=== PATIENT | female | born 1995 | race Caucasian/White ===

== ENCOUNTER 2019-04-21 14:52 | Inpatient (IN) | payer BC, MEDICAID ==
[~2019-04-21] VITALS: Ht 157.5 cm; Wt 101.1 kg
[2019-04-21 15:10] VITALS: Ht 157.5 cm; Wt 101.1 kg
[2019-04-21 16:21] VITALS: BP 120/73; PULSE 77; RESP 20
--- NOTE | 2019-04-21 18:57 | HP ---
Date/Time of Note Date/Time of Note DATE: 04/21/19 TIME: 18:56 OB - History Hx of Present Free Text/Dictation @40+wks GA in labor : 2 Para: 0 Care: Good Care Ultrasounds: Normal mid trimester US Obstetrical Complications: None Medical Complications: None Past Family/Social History * Past Medical, Surgical, Family and Obstetric Histories reviewed from c nguyen. OB Admission Exam Vital Signs Vital Signs Vital Signs Date Temp Pulse Resp B/P (MAP) Pulse Ox O2 O2 Flow FiO2 Time Delivery Rate 04/21/19 97.0 77 20 120/73 Room Air 16:21 (89) Physical Exam Abdomen: WNL Cervical Dilatation: 1cm Effacement: 75% Station: -1 Membranes: Intact Heart Rate: 140's Accelerations: Accelerations Present Decelerations: No Decelerations Varibility: Moderate Contractions on Admission: 6-10 Minutes Apart OB Assessment/Plan Reason for admission: observation Other Assessment: PMH Denies PSH Denies Plan: Expectant Management ARMANDO GARCÍA M.D. Apr 21, 2019 18:57
[2019-04-21] MEDS ORDERED: IBUPROFEN 600 MG TAB PO PRN (19:00)
[2019-04-21] MEDS ORDERED: LIDOCAINE 1% (MPF) 30 ML INJ INJ PRN (19:00)
[2019-04-21] MEDS ORDERED: OXYTOCIN 30 UNITS/LR 500 ML IV PRN (19:00)
[2019-04-21] MEDS ORDERED: OXYCODONE/ASPIRIN (4.88/325) TAB PO PRN (19:00)
[2019-04-21] MEDS ORDERED: METHYLERGONOVINE 0.2 MG INJ IM PRN (19:00)
[2019-04-21] MEDS ORDERED: MISOPROSTOL 200 MCG TAB PR PRN (19:00)
[2019-04-21] MEDS ORDERED: BUTORPHANOL 2 MG INJ IV PRN (19:00)
[2019-04-21] MEDS ORDERED: OXYTOCIN 30 UNITS/LR 500 ML IV SCH ×2 (19:00)
[2019-04-21] MEDS ORDERED: CARBOPROST 250 MCG INJ IM PRN (19:00)
--- NOTE | 2019-04-21 19:07 | TRIAGE ---
OB Triage Datetime Report Generated by CPN: 04/21/2019 19:07 Datetime: 04/21/2019 19:00 Labor Evaluation Frequency: 3-9 Monitor Mode: External Duration (sec)2399: 40-80 Quality: Mild Pattern: Normal: <= 5 Contractions in 10 Minutes Resting Tone Kelford: Relaxed Heart Rate FHR Baseline Rate: 115 Monitor Mode: External US FHR Baseline Changes: Bradycardia Variability: Moderate 6-25 bpm Accelerations: 15X15 Decelerations: None Category: Category I Pain Assessment Pain Scale: 0 Pain Presence: None/Denies Pain Type: N/A Pain Goal: 0 Datetime: 04/21/2019 17:59 Labor Evaluation Frequency: 3-11 Monitor Mode: External Duration (sec)2399: 40-60 Quality: Mild Pattern: Normal: <= 5 Contractions in 10 Minutes Resting Tone Kelford: Relaxed Heart Rate FHR Baseline Rate: 115 Monitor Mode: External US FHR Baseline Changes: Bradycardia Variability: Moderate 6-25 bpm Accelerations: 15X15 Decelerations: None Category: Category I Pain Assessment Pain Scale: 0 Pain Presence: None/Denies Pain Type: N/A Pain Goal: 2 Datetime: 04/21/2019 17:27 Vaginal Exam Dilatation (cms): 1.0 Effacement (%): 60 Station: -2 Exam By: MAY Vaginal Bleeding: None Cervix, Consistency: Soft Cervix, Position: Posterior Presentation 'A': Cephalic Datetime: 04/21/2019 17:03 Labor Evaluation Frequency: X5 Monitor Mode: External Duration (sec)2399: 40-60 Quality: Mild Pattern: Normal: <= 5 Contractions in 10 Minutes Resting Tone Kelford: Relaxed Heart Rate FHR Baseline Rate: 115 Monitor Mode: External US FHR Baseline Changes: No Baseline Change Variability: Moderate 6-25 bpm Accelerations: 15X15 Decelerations: None Category: Category I Pain Assessment Pain Scale: 0 Pain Presence: Intermittent Pain Type: Cramping Pain Location: Abdomen Pain Goal: 2 Membrane Status: Intact Datetime: 04/21/2019 16:15 Labor Evaluation Frequency: X2 Monitor Mode: External Duration (sec)2399: 40 Quality: Mild Pattern: Normal: <= 5 Contractions in 10 Minutes Resting Tone Kelford: Relaxed Heart Rate FHR Baseline Rate: 115 Monitor Mode: External US FHR Baseline Changes: Bradycardia Accelerations: 15X15 Decelerations: None Category: Category I Pain Assessment Pain Scale: 0 Pain Presence: None/Denies Pain Type: N/A Pain Goal: 0 Datetime: 04/21/2019 15:52 Time of Arrival: 04/21/2019 14:40 EGA: 40.2 Arrived By: Ambulatory Arrived From: Office Chief Complaint: LEAKING NOTED 1930 LAST NIGHT, POST DATES Movement: Present Contractions: Irregular Rupture of Membranes: Unsure Vaginal Bleeding: None Vaginal Discharge: Present Recent Sexual Intercouse: Denies Abdominal Trauma: Not Applicable Patient Complaints: Other Time Provider Notified: 04/21/2019 17:31 Provider Notified: DR. HOPKINS Initial Plan: EFM, BPP, EFW Datetime: 04/21/2019 15:50 Assessment Type: Triage Maternal Assessment Level of Consciousness: Keenly Alert, Responsive DTR's/Clonus: DTRs 2+; No Clonus Headache: Denies Blurred Vision: No Respiratory Effort: Unlabored; Regular Rhythm; Equal Expansion Breath Sounds, Left: Clear and Equal Breath Sounds, Right: Clear and Equal Nausea/Vomiting: Denies RUQ Epigastric Pain: Denies Lower Extremities Edema: None Degree: None Upper Extremities Edema: None Degree: None Facial Edema: None Fall Risk Assessment History of Falling: (0) No Secondary Diagnosis: (0) No Ambulatory Aid: (0) Bedrest/Nurse Assist IV Therapy: (0) No Gait: (0) Normal/Bedrest/Immobile Mental Status: (0) Oriented to Own Ability Fall Score: 0 Fall Risk Score Definition: No Risk: No action required Datetime: 04/21/2019 15:31 Monitor Mode: External Monitor Mode: External US Pain Assessment Pain Scale: 0 Pain Presence: Intermittent Pain Type: Cramping Pain Location: Abdomen Pain Goal: 2
--- NOTE | 2019-04-21 19:56 | HP ---
Date/Time of Note Date/Time of Note DATE: 04/21/19 TIME: 19:55 OB - History Hx of Present Chief Complaint: post date Estimated Due Date: Apr 19, 2019 : 2 Para: 0 Spontaneous : 0 Therapeutic : 1 Care: Good Care Ultrasounds: Normal mid trimester US Obstetrical Complications: None Medical Complications: None Past Family/Social History * Past Medical, Surgical, Family and Obstetric Histories reviewed from chart. GBS Status: Negative OB Admission Exam Vital Signs Vital Signs Vital Signs Date Temp Pulse Resp B/P (MAP) Pulse Ox O2 O2 Flow FiO2 Time Delivery Rate 04/21/19 97.0 77 20 120/73 Room Air 16:21 (89) Physical Exam HEENT: WNL Heart: Rhythm Normal Lungs: Clear, Equal Abdomen: WNL Extremities: Normal Reflexes: Normal Cervical Dilatation: Fingertip Effacement: 50% Station: -1 Membranes: Intact Heart Rate: 120's Accelerations: Accelerations Present Decelerations: No Decelerations Varibility: Moderate OB Assessment/Plan Reason for admission: induction of labor Plan: Induction Induction Method: per Misoprostol Protocol MIGUEL BRUCE MD Apr 21, 2019 19:56
[2019-04-21] MEDS: LACTATED RINGER'S 1,000 ML IV SCH (20:01)
[2019-04-21] MEDS: MISOPROSTOL 50 MCG CAPSULE PO SCH (21:44)
[2019-04-22] MEDS: LACTATED RINGER'S 1,000 ML IV SCH ×5 (00:16→18:16)
[2019-04-22] MEDS: MISOPROSTOL 50 MCG CAPSULE PO SCH (02:41)
--- NOTE | 2019-04-22 09:53 | PREAC ---
Date/Time of Note Date/Time of Note DATE: 04/22/19 TIME: 09:52 Anesthesia Eval and Record Evaluation Time Pre-Procedure Interview DATE: 04/22/19 TIME: 09:52 Age 24 Sex female NPO: 8 hrs Preoperative diagnosis IUP Planned procedure L&D Epidural Past Medical History Past Medical History: Includes GI: Obesity : : Surgery & Anesthesia Issues No known issue Meds Anticoagulation: No Beta Carmen within 24 hr: No Reason Beta Carmen not given: Pt. not on B-Carmen Current Medications Lactated Ringer's 1,000 ml @ 125 mls/hr Q8H IV Last administered on 04/22/19at 09:20; Admin Dose 125 MLS/HR; Start 04/21/19 at 18:54 Butorphanol Tartrate (Stadol) 2 mg Q2H PRN IV .PAIN SCALE 6-10; Start 04/21/19 at 19:00 Lidocaine (Xylocaine 1% (Mpf)) 30 ml ONCE PRN INJ .EPISIOTOMY; Start 04/21/19 at 19:00 Oxytocin/Lactated Ringer's 500 ml @ 500 mls/hr ONCE POST IV ; Start 04/21/19 at 19:00 Oxytocin/Lactated Ringer's 500 ml @ 125 mls/hr POST IV ; Start 04/21/19 at 19:00 Ibuprofen (Motrin) 600 mg ONCE PRN PO .PAIN 1-5; Start 04/21/19 at 19:00 Oxycodone/Aspirin (Percodan) 2 tab ONCE PRN PO .PAIN 6-10; Start 04/21/19 at 19:00 Oxytocin/Lactated Ringer's 500 ml @ 0 mls/hr ONCE PRN IV .VAGINAL BLEEDING; Start 04/21/19 at 19:00 Methylergonovine Maleate (Methergine) 0.2 mg ONCE PRN IM .VAGINAL BLEEDING; Start 04/21/19 at 19:00 Carboprost Tromethamine (Hemabate) 250 mcg ONCE PRN IM .VAGINAL BLEEDING; Start 04/21/19 at 19:00 Misoprostol (Cytotec) 1,000 mcg ONCE PRN NM .VAGINAL BLEEDING; Start 04/21/19 at 19:00 Misoprostol (Cytotec 50 Mcg Capsule) 50 mcg Q4 PO Last administered on 04/22/19a t 02:41; Admin Dose 50 MCG; Start 04/21/19 at 21:00; Stop 04/22/19 at 17:01 Lactated Ringer's 500 ml @ 500 mls/hr Q1H ONCE IV ; Start 04/22/19 at 10:00; Stop 04/22/19 at 10:59; Status UNV Meds reviewed: Yes Allergies Coded Allergies: No Known Allergy (Unverified , 04/21/19) Allergies Reviewed: Yes Labs/Studies Labs Reviewed: Reviewed by anesthesiologist Result Diagram: 04/21/191952 Laboratory Tests 04/21/19 19:53 Blood Bank Test 04/21/19 19:53 Antibody Screen NEGATIVE Blood Type O POSITIVE Rh Immune Globulin Candidate NO test: Positive Studies: ECG Pre-procedure Exam Last vitals Vital Signs Date Temp Pulse Resp B/P (MAP) Pulse Ox O2 O2 Flow FiO2 Time Delivery Rate 04/21/19 97.0 77 20 120/73 Room Air 16:21 (89) Airway: Adequate mouth opening, Adequate thyromental dist Mallampati: Mallampati II Teeth: Normal Lung: Normal Heart: Normal ASA Physical Status ASA physical status: 2 Emergency: None Planned Anesthetic Neuraxial: Epidural Planned Pain Management Parenteral pain med Pre-operative Attestations Prior to commencing anesthesia and surgery, the patient was re-evaluated, there was verification of: *The patient's identity *The results of appropriate recent lab work and preoperative vital signs *The above evaluation not changing prior to induction *Anesthetic plan, risk benefits, alternative and complications discussed with patient/family; questions answered; patient/family understands, accepts and wishes to proceed. ALEJANDRO CUNHA MD Apr 22, 2019 09:53
[2019-04-22] MEDS ORDERED: FENTAnyl 2MCG/ML-ROPIV 0.2% 100 ML ONE (09:54)
[2019-04-22] MEDS ORDERED: DIPHENHYDRAMINE 50 MG INJ IV PRN (10:00)
[2019-04-22] MEDS ORDERED: NALOXONE (0.4 MG/ML) INJ IV PRN (10:00)
[2019-04-22] MEDS ORDERED: LACTATED RINGER'S 500 ML IV ONE (10:00)
[2019-04-22] MEDS ORDERED: ONDANSETRON 4 MG INJ IV PRN ×2 (10:00→22:30)
[2019-04-22] MEDS ORDERED: FENTAnyl 2MCG/ML-ROPIV 0.2% 100 ML BAG EPI SCH (10:00)
[2019-04-22] MEDS: OXYTOCIN 30 UNITS/LR 500 ML IV SCH ×2 (11:20→11:22)
--- NOTE | 2019-04-22 20:23 | LDN ---
Date/Time of Note Date/Time of Note DATE: 04/22/19 TIME: 20:21 Delivery Summary Weeks of Gestation 40 Placenta Delivered: Spontaneously Meconium: none Perineal laceration: 1 Laceration repair: 1st degree perineal laceration repair with 2-0 and 3-0 chromic Anesthesia type: Epidural Estimated blood loss: 200 Sponge & Needle done & correct: Yes All needle counts correct: Yes Any foreign bodies felt in the: No Delivery Information Sex Sex: male Apgars 1 Minute: 8 5 Minute: 9 Suctioning Nose & mouth suctioned at eron: No Delee suction performed: No Umbilical Cord Umbilical cord with: 3 Vessels Cord presentations: no nuchal cord Cord Blood was obtained: Yes MAG HOPKINS MD Apr 22, 2019 20:22
[2019-04-22 21:30] VITALS: BP 116/60; PULSE 63; RESP 19
[2019-04-22] MEDS ORDERED: OXYTOCIN 30 UNITS/LR 500 ML IV SCH (22:21)
[2019-04-22] MEDS ORDERED: LANOLIN HPA 1 PKT TOP PRN (22:30)
[2019-04-22] MEDS ORDERED: WITCH HAZEL/GLYCERIN PAD PR PRN (22:30)
[2019-04-22] MEDS ORDERED: CARBOPROST 250 MCG INJ IM PRN (22:30)
[2019-04-22] MEDS ORDERED: ZOLPIDEM 5 MG TAB PO PRN (22:30)
[2019-04-22] MEDS ORDERED: HYDROCODONE/APAP (5/325) TAB PO PRN (22:30)
[2019-04-22] MEDS ORDERED: MISOPROSTOL 200 MCG TAB PR PRN (22:30)
[2019-04-22] MEDS ORDERED: NACL 0.9% 3 ML SYG IV SCH (22:30)
[2019-04-22] MEDS ORDERED: ACETAMINOPHEN 325 MG TAB PO PRN (22:30)
[2019-04-22] MEDS ORDERED: BENZOCAINE 20% 56 ML SPRAY TOP PRN (22:30)
[2019-04-22] MEDS ORDERED: METHYLERGONOVINE 0.2 MG INJ IM PRN (22:30)
[2019-04-22] MEDS ORDERED: OXYTOCIN 30 UNITS/LR 500 ML IV PRN (22:30)
[2019-04-22] MEDS ORDERED: DIPHENHYDRAMINE 25 MG CAP PO PRN (22:30)
[2019-04-22] MEDS: IBUPROFEN 800 MG TAB PO SCH (23:20)
[2019-04-23 03:15] VITALS: BP 109/63; PULSE 58; RESP 20
[2019-04-23] MEDS: IBUPROFEN 800 MG TAB PO SCH ×4 (05:26→23:52)
--- NOTE | 2019-04-23 07:27 | PD.PPDC ---
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 Discharge Instruction Condition [id number] Patient Condition: Ejoin1a Fair Diet Feeks4Tl Diet: Doomp1o Resume Regular Diet Activity/Restrictions [id number] Activity: Afoch5f Normal Activity May Shower [id number] Restrictions: Ohzyq1h No Exercising No Lifting No Driving No Sexual Activity Nothing in the Vagina No [employer] No Tampons, douche Follow-up Follow-up with Physician: 3, Week/Weeks Return to clinic for Napzy6Dz EVS ATTENDANT Instructions: Ctoig5x Fever greater than 101 Chills Worsening abdominal pain Excessive Vaginal Bleeding More than 2 pads per hour Unable to tolerate diet [id number] OB Instructions: Efbgy7f Breast Tenderness Depression Blurried Vision Headache [id number] Surgical Instructions: Kcovn3v Incisional Drainage Incisional Redness MAG HOPKINS MD Apr 23, 2019 07:27
--- NOTE | 2019-04-23 07:29 | DS ---
Date/Time of Note Date/Time of Note DATE: 04/23/19 TIME: 07:28 Obstetrical Discharge Record Final Diagnosis Final Diagnosis: Term delivered Vaginal Delivery Obstetrical Delivery: Spontaneous, Laceration, Repaired Condition on Discharge Physical Assessment Last Vitals: stable afebrile Voiding: Yes Bowel Movement: Yes Breast: Soft, non-tender, Filling Fundus: Firm Abdomen and Incision: soft nt Calf Tenderness: No Patient Condition: Fair MAG HOPKINS MD Apr 23, 2019 07:29
[2019-04-23 08:00] VITALS: BP 119/65; PULSE 73; RESP 20
[2019-04-23] MEDS: SENNA/DOCUSATE NA (8.6MG/50MG) TAB PO SCH ×2 (09:48→21:55)
[2019-04-23] MEDS: MISOPROSTOL 50 MCG CAPSULE PO SCH (09:56)
[2019-04-23 11:55] VITALS: BP 131/73; PULSE 72; RESP 20
[2019-04-23 15:50] VITALS: BP 120/74; PULSE 82; PULSE 91; RESP 16; RESP 20
[2019-04-23 19:35] VITALS: BP 113/68; PULSE 71; RESP 18
--- NOTE | 2019-04-23 21:48 | DELSUM ---
Delivery Summary A-C Datetime Report Generated by CPN: 04/23/2019 21:48 DELIVERY PERSONNEL Crystallography Teacher: Jain, Henrietta MATERNAL INFORMATION Delivery Anesthesia: Epidural Medications in Delivery: 30 UNITS PITOCIN Delivery QBL (ml): 200 Placenta Cultured: No Maternal Complications: None LABOR SUMMARY EDC: 04/19/2019 00:00 No. Babies in Womb: 1 Attempted: No Labor Anesthesia: Epidural LABOR INFORMATION Reason for Induction: Postterm Onset of Labor: 04/21/2019 20:00 Complete Dilatation: 04/22/2019 19:09 Cervical Ripening Agents: Cytotec @ 50 MCG PO GIVEN Other Ripening Agents: 2 Group B Beta Strep: Negative Antibiotics # of Doses: 0 Steroids Given: None Reason Steroids Not Administered: Not Applicable MEMBRANES Membranes Rupture Method: Spontaneous Rupture of Membranes: 04/22/2019 15:56 Length of Rupture (hr): 3.70 Amniotic Fluid Color: Clear Amniotic Fluid Amount: Moderate Amniotic Fluid Odor: None STAGES OF LABOR Stage 1 hr: 23 Stage 1 min: 9 Stage 2 hr: 0 Stage 2 min: 29 Stage 3 hr: 0 Stage 3 min: 2 Total Time in Labor hr: 23 Total Time in Labor min: 40 VAGINAL DELIVERY Laceration Extension: First Degree Laceration Type: Perineal Laceration Repair: Yes Initial Vag Sponge Count: 10 Final Vag Sponge Count: 10 Initial Vag Sharps Count: 2 Final Vag Sharps Count: 2 Sponge Count Correct: Yes; Vaginal Sweep Performed Sharps Count Correct: Yes BABY A INFORMATION Delivery Date/Time: 04/22/2019 19:38 Method of Delivery: Vaginal Born in Route : No : N/A Forceps: N/A Vacuum Extraction: N/A Shoulder Dystocia : N/A SHOULDER DYSTOCIA BABY A Infant Delivery Date/Time: 04/22/2019 19:38 PRESENTATION/POSITION BABY A Presentation: Cephalic Cephalic Presentation: Vertex Breech Presentation: N/A PLACENTA INFORMATION BABY A Placenta Delivery Time : 04/22/2019 19:40 Placenta Method of Delivery: Expressed Placenta Status: Delivered SCORES BABY A Heart Rate 1 min: >100 bpm Resp Effort 1 min: Good Cry Reflex Irritability 1 min: Cough/Sneeze/Pulls Away Muscle Tone 1 min: Active Motion Color 1 min: Blue/Pale Resuscitation Effort 1 min: Tactile Stimulation SCORE 1 MIN: 8 Heart Rate 5 min: >100 bpm Resp Effort 5 min: Good Cry Reflex Irritability 5 min: Cough/Sneeze/Pulls Away Muscle Tone 5 min: Active Motion Color 5 min: Body Warren, Extremit Blue Resuscitation Effort 5 min: Tactile Stimulation SCORE 5 MIN: 9 INFANT INFORMATION BABY A Gestational Age at Delivery: 40.3 Gestational Status: Full Term- 39- 40.6 Weeks Condition : Stable Sex: Male IDENTIFICATION/MEDS BABY A ID Band Number: [id number] ID Band Location: Right Leg; Left Arm Sensor Applied: Yes Sensor Number: [id number] Sensor Location : Cord Clamp Vitamin K Given : Not Given Erythromycin Given: Not Given WEIGHT/LENGTH BABY A Infant Birthweight (gm): 3800 Weight (lb): 8 Weight (oz): 6 Length (in): 20.00 Length (cm): 50.80 CORD INFORMATION BABY A No. Cord Vessels: 3 Nuchal Cord : N/A Cord Blood Taken: Yes Suction: Mouth; Nose ASSESSMENT BABY A Infant Complications: Multiple Variable Decels Physical Findings at Delivery: Within Normal Limits Respirations: Appears Normal Trimming Cutter Machine/ALS Called : No Infant Care By: PRIYA Transferred To: Remains with Mother
[2019-04-24 03:52] VITALS: BP 98/57; PULSE 78; RESP 20
[2019-04-24] MEDS: IBUPROFEN 800 MG TAB PO SCH ×2 (05:30→11:54)
[2019-04-24 08:30] VITALS: BP 114/70; PULSE 71; RESP 18
[2019-04-24] MEDS ORDERED: MEASLES,MUMPS,RUBELLA VACCINE INJ SC* ONE (09:00)
[2019-04-24] MEDS ORDERED: VARICELLA VACCINE LIVE/PF 1,350 UNIT/0.5 ML ML SC* ONE (09:00)
[2019-04-24] MEDS ORDERED: DIPHTH/TET/ACEL PERTUSS (ADULT) 0.5 ML VIAL IM* ONE (09:00)
[2019-04-24] MEDS: SENNA/DOCUSATE NA (8.6MG/50MG) TAB PO SCH (09:45)
--- NOTE | 2019-04-24 16:42 | PAC ---
Date/Time of Note Date/Time of Note DATE: 04/24/19 TIME: 16:41 Post-Anesthesia Notes Post-Anesthesia Note Last documented vital signs Vital Signs Date Temp Pulse Resp B/P (MAP) Pulse Ox O2 O2 Flow FiO2 Time Delivery Rate 04/24/19 98.2 71 18 114/70 Room Air 08:30 (85) Activity: WNL Respiratory function: WNL Cardiovascular function: WNL Mental status: Baseline Pain reasonably controlled: Yes Hydration appropriate: Yes Nausea/Vomiting absent: Yes Comments BP:124/67, P:78, Spo2:100%, T:98,8 ALEJANDRO CUNHA MD Apr 24, 2019 16:42
== END 2019-04-24 15:14 | disposition home or self-care (01) | DRG 807 ==
LOC: OBT 14:52 → L-D 15:09 → OBT 18:53 → MS1 04-22 21:19
PROVIDERS: ADMIT Obstetrics & Gynecology; ATTEND Obstetrics & Gynecology
PROC: 10E0XZZ Delivery of Products of Conception, External Approach (ICD-10-PCS; principal; 2019-04-22)
PROC: 0HQ9XZZ Repair Perineum Skin, External Approach (ICD-10-PCS; 2019-04-22)
DX: O70.0 First degree perineal laceration during delivery (principal); Z37.0 Single live birth; Z3A.40 40 weeks gestation of pregnancy
CPT/HCPCS: 62322; 76815; 76818; 85025; 85610; 85730; 86592; 86850; 86900; 86901; 87340; 90715; 90716; G0463; J2590; J3010; J7120